=== PATIENT | female | born 1980 | race Two or more races ===

== ENCOUNTER 2017-07-03 08:39 | Outpatient (CLI) | payer OTHER | END 2017-07-03 15:01 | disposition home or self-care (01) | LOC: SONOGRAMA 08:39 | DX: N84.9 Polyp of female genital tract, unspecified (principal); D25.9 Leiomyoma of uterus, unspecified ==

== ENCOUNTER 2018-05-27 12:15 | Inpatient (IN) | payer OTHER ==
[~2018-05-27] VITALS: Ht 154.9 cm; Wt 67.6 kg
[2018-06-23] MEDS ORDERED: MAXFE CAPLET1 EACH PO (04:22)
[2018-06-23] MEDS ORDERED: PRENATAL TABLE1 EAC1 PO (04:23)
== END 2018-06-25 10:14 | DRG 807 ==
LOC: OB/GYN 06-17 12:15 → LDR 06-23 03:32 → SURG-SUITE 06-23 03:32
PROVIDERS: ADMIT Obstetrics & Gynecology Maternal & Fetal Medicine
PROC: 10E0XZZ Delivery of Products of Conception, External Approach (ICD-10-PCS; principal; 2018-06-23)
PROC: 0KQM0ZZ Repair Perineum Muscle, Open Approach (ICD-10-PCS; 2018-06-23)
PROC: 0W8NXZZ Division of Female Perineum, External Approach (ICD-10-PCS; 2018-06-23)
PROC: 4A1HXCZ Monitoring of Products of Conception, Cardiac Rate, External Approach (ICD-10-PCS; 2018-06-23)
PROC: 4A033R1 Measurement of Arterial Saturation, Peripheral, Percutaneous Approach (ICD-10-PCS; 2018-06-23)
DX: O70.1 Second degree perineal laceration during delivery (principal); Z37.0 Single live birth; Z3A.39 39 weeks gestation of pregnancy; Z22.330 Carrier of Group B streptococcus

== ENCOUNTER 2018-06-02 09:22 | Outpatient (CLI) | payer OTHER | END 2018-06-02 10:23 | disposition home or self-care (01) | LOC: NST 09:22 | DX: Z34.83 Encounter for supervision of other normal pregnancy, third trimester (principal) ==

== ENCOUNTER 2018-06-16 09:29 | Outpatient (CLI) | payer OTHER | END 2018-06-16 10:29 | disposition home or self-care (01) | LOC: NST 09:29 | DX: Z34.83 Encounter for supervision of other normal pregnancy, third trimester (principal) ==